=== PATIENT | male | born 1955 | race Hispanic/Latino ===

== ENCOUNTER 2018-11-10 06:12 | Outpatient (CLI) | payer BC | END 2018-11-10 06:13 | disposition home or self-care (01) | LOC: CARDIO 06:12 ==

== ENCOUNTER 2018-11-22 06:39 | Day surgery (SDC) | payer BC ==
[2018-11-10 10:29] VITALS: BMI 37.1
[2018-11-22 07:16] LABS: BASO # 0.07 K/mm3 (0.0-2.0); BASO % 0.6 % (0.0-3.0); EOS # 0.7 (0.0-0.7); EOS % 5.8 % (1.5-5.0); HEMOGLOBIN 11.5 g/dL (14.0-18.0); MEAN CELL VOLUME 61.4 fl (80.0-105.0); MEAN CORPUSCULAR HEMOGLOBIN 18.8 pg (25.0-35.0); MEAN CORPUSCULAR HGB CONC 30.6 g/dl (31.0-37.0); MONO # 0.6 (0.1-0.6); MONO % 5.4 % (1.0-6.0); RBC 6.12 10^6/uL (3.5-6.1); RED CELL DISTRIBUTION WIDTH 16.5 % (11.5-14.5); WHITE BLOOD COUNT 11.1 10^3/uL (4.5-11.0)
[2018-11-22 07:25] LABS: BLOOD UREA NITROGEN 19 mg/dL (7-21); CALCIUM 9.9 mg/dL (8.4-10.5); GFR NON-AFRICAN AMERICAN > 60; HDL CHOLESTEROL 29 mg/dL (29-60); INR 0.98; PARTIAL THROMBOPLASTIN TIME 36.6 Seconds (26.9-38.3); PROTHROMBIN TIME 11.1 SECONDS (9.4-12.5)
[2018-11-22 07:36] LABS: LDL CHOLESTEROL 48 mg/dL (0-129)
[2018-11-22] MEDS ORDERED: Iodixanol 320 MG/ML 100 ML BOTTLE IV ONE (08:54)
[2018-11-22] MEDS ORDERED: Iohexol 350mgl/ml 50 ML ONE (08:54)
[2018-11-22] MEDS ORDERED: Iodixanol 320 MG/ML 200 ML BOTTLE IV ONE (08:54)
[2018-11-22] MEDS ORDERED: Lidocaine PF 2% (5 ml) Inj (For Cardiac Arrhy) ONE (08:54)
[2018-11-22] MEDS ORDERED: Midazolam 2 MG/2 ML VIAL ONE ×2 (09:27→09:37)
[2018-11-22] MEDS ORDERED: Sodium Chloride 0.9% 1,000 ML IV SCH (10:15)
[2018-11-22] MEDS: Insulin Reg-MEDIUM-Coverage SC SCH ×3 (11:30→21:50)
--- NOTE | 2018-11-22 12:28 | CARD ---
APPROVED REPORT Date of service: 11/22/2018 EKG Measurement Heart [id number] VT 182P31 [id number] <Conclusion> Normal sinus rhythm Nonspecific T wave abnormality Abnormal ECG
--- NOTE | 2018-11-22 12:58 | CARD ---
APPROVED REPORT Date of service: 11/22/2018 EKG Measurement Heart [id number] AK 196P14 [id number] <Conclusion> Normal sinus rhythm Nonspecific T wave abnormality Abnormal ECG
--- NOTE | 2018-11-22 13:20 | CARDCATH ---
PROCEDURE DATE: 11/22/2018 HISTORY: The patient is a 62-year-old male who presents with multiple cardiac risk factors and an abnormal stress test. Because of this, cardiac catheterization was recommended. He suffers from hypertension, diabetes mellitus, and hypercholesterolemia. PROCEDURE: Left heart catheterization with coronary arteriography and left ventriculogram followed by PTCA and stent of an RCA. The right femoral artery was cannulated with 6-Thai sheath. There were no complications. I performed moderate sedation which included the presence of an independent trained observer that assisted in monitoring the patient's level of consciousness and physiologic status. After administration of Versed and fentanyl, my intra service time was 30 minutes. The findings on catheterization revealed a right dominant circulation. The RCA revealed diffuse atherosclerosis with an eccentric 70% stenosis in the proximal portion. The left main artery was unremarkable. The LAD and diagonal vessels were free of significant disease with 50% stenosis in the first diagonal vessel. The circumflex artery and obtuse marginal branches were free of significant disease. The left ventricle was visualized and found to be normal with an EF of 60%. The patient was started on intravenous Angiomax on the fluoroscopic guide, the guiding catheter was placed in the ostium of the left of the RCA and 0.04 ATW wire was used to cross the critical lesion. A 3.5 x 8 mm drug-eluting stent was placed and deployed in the RCA had 14 of pressure. Repeat coronary arteriography revealed an excellent result with no residual stenosis and KOLE III flow. Angio-Seal was used to close the femoral artery site. The patient tolerated the procedure well. In summary, the procedure was successful PTCA and stent of an eccentric 70% stenosis proximal RCA stenoses with a drug-eluting stent. Cardiac catheterization revealed single-vessel CAD with diffuse atherosclerosis in its coronary tree. LV function is normal given these findings, the patient will need to remain on aspirin indefinitely and Plavix for at least a year and undergo a cardiac risk reduction program. Candido Jacques MD
--- NOTE | 2018-11-22 18:54 | HP ---
DATE OF EXAM: 11/22/2018 HISTORY OF PRESENT ILLNESS: I was called to see this young man by Dr. Candido Jacques. He did a cardiac cath and stent placement on him this morning and now he is resting comfortably in bed. He is a nice 62-year-old white man who had some abnormal stress test done on the outpatient and was taken for cardiac catheterization when they found a lesion and they stented him. PAST MEDICAL HISTORY: He has a past medical history of diabetes, high cholesterol, hypertension, TIA, syncope, anemia. He has had a TIA in 10/19/2018, had slurred speech with letters, thalassemia minor, thyroid disease, thyroid nodule, brachial plexitis, numbness of the right hand. PAST SURGICAL HISTORY: He has had a thyroid biopsy, procedures for kidney stones. He had a colonoscopy. FAMILY HISTORY: Cancer. The father has prostate cancer. SOCIAL HISTORY: He does drink wine. No smoking. No drugs. REVIEW OF SYSTEMS: He is presently lying flat in his bed, status post cardiac cath and stent placement. He is to lay flat for 6 hours. At this time, he is comfortable. No chest pain. No shortness of breath. No abdominal pain. No acute vision or hearing changes. No sore throat. No skin issues that he knows of. PHYSICAL EXAMINATION GENERAL: He is pleasant. He understands he has to lay flat for 6 hours. VITAL SIGNS: He has 98 temperature, 79 pulse, 18 respiratory rate, 93% O2 sat, 144/59 blood pressure. HEENT: Head is atraumatic, normocephalic. Extraocular muscles are intact. Throat moist. NECK: Supple. HEART: Regular rate. LUNGS: Decreased breath sounds. Poor inspiration but clear to auscultation. ABDOMEN: Soft, nontender. Positive bowel sounds. Obese. No guarding. No rebound. No CVA tenderness appreciated. EXTREMITIES: No edema. NEUROLOGIC: He is alert and oriented x3. He is comfortable and not anxious. LYMPHATICS: Thyroid midline. No palpable appreciable lymphadenopathy. SKIN: From what I could tell, lying flat was intact with no apparent ulcers or rashes. LABORATORY DATA: He has 140 sodium, potassium 4.1, BUN 19, creatinine 0.6, GFR is greater than 60, sugar is 146, calcium is 9.9, total glycerides are 178, cholesterol is 97, LDL is 48, HDL is 29, 0.98 INR. He has a 11.1. white count, 11.5 hemoglobin, 37.6 hematocrit with 287 platelets. MEDICATIONS: He is currently on Ecotrin, Lipitor, Plavix and IV fluids. IMPRESSION: He is here for abnormal stress test. Cardiac catheterization and stent placement. The patient also has diabetes, high cholesterol and hypertension. PLAN: His metformin will be on hold for the protection of the kidneys. I will put him on insulin coverage a.c. and at bedtime until he can restart his medications tomorrow. He will rest for 6 hours in bed on his back. Hopefully after an overnight tomorrow we could discharge him. Juaquin Catherine DO
[2018-11-22 23:45] VITALS: O2SAT 99
[2018-11-23 06:11] VITALS: PULSE 79
[2018-11-23 07:01] LABS: BASO # 0.07 K/mm3 (0.0-2.0); BASO % 0.7 % (0.0-3.0); EOS # 0.5 (0.0-0.7); EOS % 4.8 % (1.5-5.0); HEMOGLOBIN 10.8 g/dL (14.0-18.0); LYMPH # 2.7 (1.2-3.4); LYMPH % 25.8 % (22.0-35.0); MEAN CELL VOLUME 61.7 fl (80.0-105.0); MEAN CORPUSCULAR HEMOGLOBIN 18.5 pg (25.0-35.0); MEAN PLATELET VOLUME 9.6 fl (7.0-11.0); MONO # 0.5 (0.1-0.6); MONO % 5.2 % (1.0-6.0); RBC 5.83 10^6/uL (3.5-6.1); RED CELL DISTRIBUTION WIDTH 16.2 % (11.5-14.5); WHITE BLOOD COUNT 10.4 10^3/uL (4.5-11.0)
[2018-11-23 07:21] LABS: BLOOD UREA NITROGEN 18 mg/dL (7-21); GFR NON-AFRICAN AMERICAN > 60
[2018-11-23] MEDS: Insulin Reg-MEDIUM-Coverage SC SCH ×2 (08:52→13:21)
--- NOTE | 2018-11-23 12:52 | CARD ---
APPROVED REPORT Date of service: 11/23/2018 EKG Measurement Heart [id number] NV 166P29 [id number] <Conclusion> Normal sinus rhythm Nonspecific T wave abnormality Abnormal ECG
[2018-11-23 13:25] VITALS: BP 153/81; RESP 20; TEMP 98.1
--- NOTE | 2018-11-23 18:28 | PN ---
DATE: 11/23/2018 CARDIOLOGY FOLLOWUP SUBJECTIVE: The patient is chest pain-free. PHYSICAL EXAMINATION: VITAL SIGNS: Stable. NECK: Negative JVD. LUNGS: Without rales. HEART: Reveals S1 and S2. EXTREMITIES: Without edema. LABORATORY DATA: Hemoglobin is 10.8. Chemistries, BUN and creatinine unremarkable. Glucose is 139. IMPRESSION: 1. Stable post percutaneous transluminal coronary angioplasty and stent of an RCA with a drug-eluting stent. 2. Coronary artery disease. 3. Diabetes mellitus. 4. Hypertension. Given these findings, the patient's cardiac status is stable. The patient can be discharged today. Candido Jacques MD
--- NOTE | 2018-11-23 23:13 | DS ---
HISTORY OF PRESENT ILLNESS: He is resting comfortably in bed. His is with him. He has not walked since yesterday's procedure. He has to get up and walk around, I discussed this with the nurse, they will walk him. He will be discharged today home after Dr. Jacques sees him and medications with him. Also, he will follow up with Dr. Tierney in the next seven days, he understands that as his primary care doctor. PHYSICAL EXAMINATION: GENERAL: He is alert and oriented, talking, pleasant. He was happy that he did well with the procedure. VITAL SIGNS: He has a 97.7 temperature, 79 pulse, 164/78 blood pressure, 18 respiratory rate, and 99% O2 saturation on room air. HEENT: His head is atraumatic and normocephalic. HEART: Regular rate. LUNGS: Clear to auscultation. ABDOMEN: Soft and obese. We discussed also with diet and weight loss. EXTREMITIES: Good. He has got no chest pain. No shortness of breath. No abdominal pain. Slept very well. He is quite comfortable in his appetite. to walk, which he said he can do so I spoke to the nurse they will walk him this morning. He will be on his medications as per Dr. Jacques. LABORATORY DATA: He has 139 sodium, potassium 4.3, BUN 18, creatinine 0.6, GFR is greater than 60, sugar is 139, and calcium is 9. White count is 10.4, hemoglobin 10.8, hematocrit 36, and platelets are 242. ASSESSMENT AND PLAN: He did very well here. He had a cardiac catheterization and stent placement. He will follow up with Dr. Jacques and Dr. Tierney. He is on Ecotrin, Lipitor, and Plavix, he will probably go back on his regular outpatient medications and will follow up with Dr. Tierney as an outpatient. Juaquin Catherine DO MTDD
== END 2018-11-23 15:26 | disposition home or self-care (01) ==
LOC: CATH 06:39 → 2RSO 10:51 → CATH 11-23 15:26
PROVIDERS: ATTEND Internal Medicine Cardiovascular Disease
DX: I25.10 Atherosclerotic heart disease of native coronary artery without angina pectoris (principal); R94.39 Abnormal result of other cardiovascular function study; E11.9 Type 2 diabetes mellitus without complications; E78.00 Pure hypercholesterolemia, unspecified; I10 Essential (primary) hypertension; D56.3 Thalassemia minor; Z86.73 Personal history of transient ischemic attack (TIA), and cerebral infarction without residual deficits; Z87.442 Personal history of urinary calculi; Z79.82 Long term (current) use of aspirin; Z79.899 Other long term (current) drug therapy; Z80.42 Family history of malignant neoplasm of prostate
CPT/HCPCS: 36415; 80048; 80061; 82948; 85025; 85610; 85730; 86850; 86900; 93005; 93458; 99152; 99153; C1760; C1769 ×2; C1874; C1887; C2629; C9600; J0583; J1644; J2250; J3010; J7030; J7040; Q9966; Q9967